=== PATIENT | female | born 1970 | race Caucasian/White ===

== ENCOUNTER 2018-02-09 21:51 | Inpatient (IN) | payer OTHER ==
[2018-02-10] MEDS ORDERED: ACETAMINOPHEN 325 MG TAB PO
[2018-02-10] MEDS ORDERED: BISACODYL (EC) 5 MG TAB PO
[2018-02-10] MEDS: SOD CHLORIDE 0.9% 1,000 ML IV ×2 (00:52→20:34)
[2018-02-10] MEDS: CEFTRIAXONE 1 GM/50 ML (PMX) 50 ML IVPB (02:07)
[2018-02-10] MEDS: PANTOPRAZOLE 40 MG INJ IV (06:34)
[2018-02-10] MEDS: MULTIVITAMINS 10 ML, THIAMINE 100 MG, FOLIC ACID 1 MG in SOD CHLORIDE 0.9% 1,000 ML IVPB (09:54)
[2018-02-10] MEDS: DIPHENHYDRAMINE 25 MG CAP PO (17:26)
[2018-02-10] MEDS: ONDANSETRON 4 MG INJ IV (17:26)
[2018-02-10] MEDS: GABAPENTIN 100 MG CAP PO (21:21)
[2018-02-10] MEDS: VALACYCLOVIR 500 MG TAB PO (22:46)
[2018-02-11] MEDS: CEFTRIAXONE 1 GM/50 ML (PMX) 50 ML IVPB (01:58)
[2018-02-11] MEDS: traMADol 50 MG TAB PO ×4 (02:10→18:45)
[2018-02-11] MEDS: PANTOPRAZOLE 40 MG INJ IV (05:56)
[2018-02-11 06:01] LABS: ADD MAN DIFF? NO
[2018-02-11 06:05] LABS: BASOPHILS % 0.6 % (0.0-2.0); EOSINOPHILS % 0.8 % (0.0-7.0); HEMATOCRIT 36.4 % (37.0-47.0); HEMOGLOBIN 12.1 g/dl (12.0-16.0); LYMPHOCYTES # 1.8 10^3/ul (0.8-2.9); MEAN CORPUSCULAR HEMOGLOBIN 34.7 pg (29.0-33.0); MEAN CORPUSCULAR HGB CONC 33.2 g/dl (32.0-37.0); MEAN CORPUSCULAR VOLUME 104.3 fl (82.0-101.0); MEAN PLATELET VOLUME 11.8 fl (7.4-10.4); MONOCYTE # 0.3 10^3/ul (0.3-0.9); MONOCYTES % 9.3 % (0.0-11.0); NEUTROPHIL # 1.3 10^3/ul (1.6-7.5); PLATELET COUNT 118 10^3/UL (140-415); RED BLOOD COUNT 3.49 10^6/ul (4.20-5.40); RED CELL DISTRIBUTION WIDTH 11.6 % (11.5-14.5)
[2018-02-11 06:05] LABS: WHITE BLOOD COUNT 3.5 10^3/ul (4.8-10.8)
[2018-02-11 06:44] LABS: ALANINE AMINOTRANSFERASE 103 IU/L (13-69); ALBUMIN 2.7 g/dl (3.3-4.9); ALKALINE PHOSPHATASE 166 IU/L (42-121); ANION GAP 9 (8-16); ASPARTATE AMINO TRANSFERASE 171 IU/L (15-46); BILIRUBIN,INDIRECT 0.6 mg/dl (0-1.1); BILIRUBIN,TOTAL 0.6 mg/dl (0.2-1.3); BLOOD UREA NITROGEN 3 mg/dl (7-20); CALCIUM 8.9 mg/dl (8.4-10.2); CARBON DIOXIDE 31 mmol/L (21-31); CHLORIDE 103 mmol/L (97-110); CREATININE 0.53 mg/dl (0.44-1.00); GLUCOSE 86 mg/dl (70-220); POTASSIUM 4.2 mmol/L (3.5-5.1); SODIUM 139 mmol/L (135-144); TOTAL PROTEIN 5.7 g/dl (6.1-8.1)
[2018-02-11] MEDS: traZODone 50 MG TAB PO (08:57)
[2018-02-11] MEDS: VALACYCLOVIR 500 MG TAB PO ×2 (08:57→20:24)
[2018-02-11] MEDS: GABAPENTIN 100 MG CAP PO ×3 (08:57→20:24)
[2018-02-11] MEDS: MULTIVITAMINS 10 ML, THIAMINE 100 MG, FOLIC ACID 1 MG in SOD CHLORIDE 0.9% 1,000 ML IVPB (08:57)
[2018-02-11] MEDS: FLUOXETINE 20 MG CAP PO (08:58)
[2018-02-11] MEDS: DIPHENHYDRAMINE 25 MG CAP PO ×2 (09:04→20:24)
[2018-02-11] MEDS: SOD CHLORIDE 0.9% 1,000 ML IV (16:00)
[2018-02-11] MEDS: LORAZEPAM 2 MG INJ IM (22:09)
[2018-02-12] MEDS: SOD CHLORIDE 0.9% 1,000 ML IV (01:31)
[2018-02-12] MEDS: CEFTRIAXONE 1 GM/50 ML (PMX) 50 ML IVPB (01:32)
[2018-02-12] MEDS: PANTOPRAZOLE 40 MG INJ IV (05:48)
[2018-02-12] MEDS: FLUOXETINE 20 MG CAP PO (08:21)
[2018-02-12] MEDS: traZODone 50 MG TAB PO (08:21)
[2018-02-12] MEDS: GABAPENTIN 100 MG CAP PO ×3 (08:21→20:43)
[2018-02-12] MEDS: VALACYCLOVIR 500 MG TAB PO ×2 (08:21→20:42)
[2018-02-12] MEDS: MULTIVITAMINS 10 ML, THIAMINE 100 MG, FOLIC ACID 1 MG in SOD CHLORIDE 0.9% 1,000 ML IVPB (08:21)
[2018-02-12 10:59] LABS: ALANINE AMINOTRANSFERASE 106 IU/L (13-69); ALBUMIN 2.9 g/dl (3.3-4.9); ALBUMIN/GLOBULIN RATIO 0.93; ALKALINE PHOSPHATASE 162 IU/L (42-121); ANION GAP 11 (8-16); ASPARTATE AMINO TRANSFERASE 164 IU/L (15-46); BILIRUBIN,INDIRECT 0.5 mg/dl (0-1.1); BILIRUBIN,TOTAL 0.5 mg/dl (0.2-1.3); BLOOD UREA NITROGEN 2 mg/dl (7-20); CALCIUM 9.2 mg/dl (8.4-10.2); CARBON DIOXIDE 32 mmol/L (21-31); CHLORIDE 101 mmol/L (97-110); CREATININE 0.54 mg/dl (0.44-1.00); GLUCOSE 102 mg/dl (70-220); POTASSIUM 3.7 mmol/L (3.5-5.1); SODIUM 140 mmol/L (135-144)
[2018-02-12] MEDS: traMADol 50 MG TAB PO (16:40)
[2018-02-12] MEDS: LORAZEPAM 1 MG TAB PO (20:43)
[2018-02-12] MEDS: DIPHENHYDRAMINE 25 MG CAP PO (20:43)
[2018-02-13] MEDS: CEFTRIAXONE 1 GM/50 ML (PMX) 50 ML IVPB (02:18)
[2018-02-13] MEDS: traMADol 50 MG TAB PO (05:57)
[2018-02-13] MEDS: LORAZEPAM 1 MG TAB PO (05:57)
[2018-02-13] MEDS: PANTOPRAZOLE 40 MG INJ IV (06:14)
[2018-02-13] MEDS: SOD CHLORIDE 0.9% 1,000 ML IV (08:00)
[2018-02-13] MEDS: FLUOXETINE 20 MG CAP PO (08:30)
[2018-02-13] MEDS: VALACYCLOVIR 500 MG TAB PO (08:30)
[2018-02-13] MEDS: traZODone 50 MG TAB PO (08:30)
[2018-02-13] MEDS: MULTIVITAMINS 10 ML, THIAMINE 100 MG, FOLIC ACID 1 MG in SOD CHLORIDE 0.9% 1,000 ML IVPB (08:31)
[2018-02-13] MEDS: GABAPENTIN 100 MG CAP PO (08:34)
== END 2018-02-13 11:25 | disposition left against medical advice (07) | DRG 894 ==
LOC: 5EC 21:51
DX: F10.231 Alcohol dependence with withdrawal delirium (principal); N17.9 Acute kidney failure, unspecified; L03.221 Cellulitis of neck; D61.818 Other pancytopenia; E86.0 Dehydration; I10 Essential (primary) hypertension; F14.10 Cocaine abuse, uncomplicated; B02.9 Zoster without complications; K70.9 Alcoholic liver disease, unspecified; E87.8 Other disorders of electrolyte and fluid balance, not elsewhere classified; F32.9 Major depressive disorder, single episode, unspecified; F41.9 Anxiety disorder, unspecified
CPT/HCPCS: 71045; 73610-RT; 76705; 80053; 85025; 87081